=== PATIENT | female | born 1975 | race Caucasian/White ===

== ENCOUNTER 2019-01-05 11:24 | Emergency (ER) | payer SELFPAY ==
--- NOTE | 2019-01-05 12:04 | RAD REPORT ---
EXAM DESCRIPTION: RAD - Wrist Left 3 View - 01/05/2019 11:56 am CLINICAL HISTORY: Pain;Numbness/tingling Pain COMPARISON: No comparisons FINDINGS: No fracture or dislocation seen. No foreign body or other soft tissue abnormality. IMPRESSION: Negative examination.
--- NOTE | 2019-01-05 13:18 | ER ---
Nurse's Notes [facility] Name: Aleksandra Downs Age: 43 yrs Sex: Female : 1975 Arrival Date: 01/05/2019 Time: 11:28 Bed 12 Private MD: Diagnosis: Pain in left wrist Presentation: 01/05 11:29 Presenting complaint: Patient states: i hurt my L wrist last , i cant remember how it happened, it started swelling and bruising and the pain wont go away; pain is 9/10; reports tingling and numbness on L fingers;. Transition of care: patient was not received from another setting of care. Onset of symptoms was January 05, 2019. Risk Assessment: Do you want to hurt yourself or someone else? Patient reports no desire to harm self or others. Initial Sepsis Screen: Does the patient meet any 2 criteria? No. Patient's initial sepsis screen is negative. Does the patient have a suspected source of infection? No. Patient's initial sepsis screen is negative. Care prior to arrival: None. 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 5 in. (165.10 cm); Pain 9/10; 11:31 Body Mass Index 24.96 (68.04 kg, 165.10 cm) ED Course: 11:28 Patient arrived in ED. mr 11:31 Triage completed. hj 11:31 Arm band placed on right wrist. hj 11:36 Linda Olguin FNP-C is PHCP. snw 11:36 Noman Lance MD is Attending Physician. snw 11:52 X-ray completed. Portable x-ray completed in exam room. Patient tolerated procedure mh1 well. 12:47 Shirlene Lynn, RN is Primary Nurse. iw 13:16 Casey Paul MD is Referral Physician. snw Administered Medications: No medications were administered Outcome: 13:18 Discharge ordered by . snw 13:29 Patient left the ED. iw Signatures: Linda Olguin, JOSELINE-C SUPERVISOR [employer]ADING-Csnw Savanna Blanca Martha mh1 Shirlene Lynn RN RN Michael Flores RN RN Corrections: (The following items were deleted from the chart) 11:34 11:31 Pulse 78bpm; Resp 18bpm; Pulse Ox 100% RA; Temp 97.8F Oral; 68.04 kg; Height 5 hj ft. 5 in.; BMI: 24.9; Pain 9/10; hj
--- NOTE | 2019-01-05 13:18 | EDPHYS ---
Physician Documentation [facility] Name: Aleksandra Downs Age: 43 yrs Sex: Female : 1975 Arrival Date: 01/05/2019 Time: 11:28 Bed 12 Private MD: ED Physician Noman Lance HPI: 01/05 13:24 This 43 yrs old Female presents to ER via Ambulatory with complaints of Wrist snw Injury. 13:24 The patient or guardian reports decreased range of motion, pain, swelling. The snw complaints affect the left wrist diffusely. Context: The problem was sustained at an unknown location, resulted from a repetitive motion. Onset: The symptoms/episode began/occurred suddenly, 5 day(s) ago, and became persistent. Associated signs and symptoms: Pertinent positives: tingling distally. The patient has not experienced similar symptoms in the past. It is unknown whether or not the patient has recently seen a physician. 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 Historical: - Allergies: 11:31 No Known Allergies; - Home Meds: 11:31 None [Active]; - PMHx: 11:31 None; - PSHx: 11:31 Hernia repair; ROS: 13:23 Constitutional: Negative for fever, chills, and weight loss, Eyes: Negative for injury, snw pain, redness, and discharge, ENT: Negative for injury, pain, and discharge, Neck: Negative for injury, pain, and swelling, Cardiovascular: Negative for chest pain, palpitations, and edema, Respiratory: Negative for shortness of breath, cough, wheezing, and pleuritic chest pain, Abdomen/GI: Negative for abdominal pain, nausea, vomiting, diarrhea, and constipation, Back: Negative for injury and pain, : Negative for injury, bleeding, discharge, and swelling, Skin: Negative for injury, rash, and discoloration, Neuro: Negative for headache, weakness, numbness, tingling, and seizure. 13:23 MS/extremity: Positive for decreased range of motion, pain, swelling, tingling, of the lateral aspect of left hand and lateral aspect of left wrist. Exam: 13:22 Constitutional: This is a well developed, well nourished patient who is awake, alert, snw and in no acute distress. Head/Face: Normocephalic, atraumatic. Eyes: Pupils equal round and reactive to light, extra-ocular motions intact. Lids and lashes normal. Conjunctiva and sclera are non-icteric and not injected. Cornea within normal limits. Periorbital areas with no swelling, redness, or edema. ENT: Nares patent. No nasal discharge, no septal abnormalities noted. Tympanic membranes are normal and external auditory canals are clear. Oropharynx with no redness, swelling, or masses, exudates, or evidence of obstruction, uvula midline. Mucous membranes moist. Neck: Trachea midline, no thyromegaly or masses palpated, and no cervical lymphadenopathy. Supple, full range of motion without nuchal rigidity, or vertebral point tenderness. No Meningismus. Chest/axilla: Normal chest wall appearance and motion. Nontender with no deformity. No lesions are appreciated. Cardiovascular: Regular rate and rhythm with a normal S1 and S2. No gallops, murmurs, or rubs. Normal PMI, no JVD. No pulse deficits. Respiratory: Lungs have equal breath sounds bilaterally, clear to auscultation and percussion. No rales, rhonchi or wheezes noted. No increased work of breathing, no retractions or nasal flaring. Back: No spinal tenderness. No costovertebral tenderness. Full range of motion. Skin: Warm, dry with normal turgor. Normal color with no rashes, no lesions, and no evidence of cellulitis. 13:22 Musculoskeletal/extremity: Extremities: grossly normal except: noted in the lateral aspect of left wrist and lateral aspect of left hand: decreased ROM, swelling, tenderness, ROM: limited active range of motion due to pain, limited passive range of motion due to pain, Circulation is intact in all extremities. Tingling of extremity. Vital Signs: 11:31 BP 129 / 76; Pulse 78; Resp 18; Temp 97.8(O); Pulse Ox 100% on R/A; Weight 68.04 kg; hj Height 5 ft. 5 in. (165.10 cm); Pain 9/10; 11:31 Body Mass Index 24.96 (68.04 kg, 165.10 cm) MDM: 12:38 Patient medically screened. snw 13:22 Data reviewed: vital signs, nurses notes. Data interpreted: Pulse oximetry: on room air snw is 100 %. Interpretation: normal. Counseling: I had a detailed discussion with the patient and/or guardian regarding: the historical points, exam findings, and any diagnostic results supporting the discharge/admit diagnosis, radiology results, the need for outpatient follow up, to return to the emergency department if symptoms worsen or persist or if there are any questions or concerns that arise at home. Special discussion: Based on the history and exam findings, there is no indication for further emergent testing or inpatient evaluation. I discussed with the patient/guardian the need to see the hand specialist for further evaluation of the symptoms. I discussed with the patient/guardian the need to see the orthopedic surgeon for further evaluation of the symptoms. 01/05 11:35 Order name: Wrist Left (3 View) XRAY snw 01/05 12:05 Order name: RAD; Complete Time: 12:05 EDMS 01/05 12:47 Order name: Thumb Spica Splint: velcro thumb splint; Complete Time: 13:08 snw Administered Medications: No medications were administered Disposition: 01/06 07:31 Co-signature as Attending Physician, Noman Lance MD I agree with the assessment and maggie plan of care. Disposition: 01/05/19 13:18 Discharged to Home. Impression: Pain in left wrist. - Condition is Stable. - Discharge Instructions: Musculoskeletal Pain, Wrist Pain, Wrist Splint, Cryotherapy, [id number]-ha-[id number]. - Prescriptions for Tylenol- Codeine #3 300-30 mg Oral Tablet - take 2 tablets by ORAL route every 6 hours As needed; 16 tablet. - Medication Reconciliation Form, Thank You Letter, Antibiotic Education, Prescription Opioid Use, Work release form form. - Follow up: Emergency Department; When: As needed; Reason: Worsening of condition. Follow up: Private Physician; When: 2 - 3 days; Reason: Recheck today's complaints, Continuance of care, Re-evaluation by your physician. Follow up: Casey Paul MD; When: 2 - 3 days; Reason: Recheck today's complaints, Continuance of care. Signatures: Dispatcher [employer] Noman Bazzi MD MD cha Therrien, Shelly, FISHER EEL-C FISHER EEL-Csnw Shirlene Lynn RN RN iw Joaquin, Henry, RN RN Corrections: (The following items were deleted from the chart) 01/05 13:29 13:18 01/05/2019 13:18 Discharged to Home. Impression: Pain in left wrist. Condition is iw Stable. Forms are Medication Reconciliation Form, Thank You Letter, Antibiotic Education, Prescription Opioid Use. Follow up: Emergency Department; When: As needed; Reason: Worsening of condition. Follow up: Private Physician; When: 2 - 3 days; Reason: Recheck today's complaints, Continuance of care, Re-evaluation by your physician. Follow up: Casey Paul; When: 2 - 3 days; Reason: Recheck today's complaints, Continuance of care. snw
== END 2019-01-05 13:29 | disposition home or self-care (01) ==
LOC: ER 11:24
DX: M25.532 Pain in left wrist (principal)
CPT/HCPCS: 99281

== ENCOUNTER 2019-02-19 11:01 | Emergency (ER) | payer SELFPAY ==
--- NOTE | 2019-02-19 12:37 | RAD REPORT ---
EXAM DESCRIPTION: RAD - Foot Left 3 View - 02/19/2019 12:10 pm CLINICAL HISTORY: Left Foot pain FINDINGS: No fracture or dislocation is seen. Large calcaneal spur is present bones appear somewhat osteoporotic.
--- NOTE | 2019-02-19 13:02 | EDPHYS ---
Physician Documentation [facility] Name: Aleksandra Downs Age: 43 yrs Sex: Female : 1975 Arrival Date: 02/19/2019 Time: 11:04 Bed 14 Private MD: Unknown, Unknown ED Physician Ko Peterson HPI: 02/19 12:51 This 43 yrs old Female presents to ER via Ambulatory with complaints of Foot gs Pain. 12:51 The patient presents with pain. The complaints affect the left foot. Context: the gs patient can partially bear weight. Onset: The symptoms/episode began/occurred 5 day(s) ago. Associated signs and symptoms: Pertinent negatives: weakness. Severity of symptoms: At their worst the symptoms were moderate, in the emergency department the symptoms are unchanged. The patient has experienced similar episodes in the past, a few times. 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 - Social history:: Smoking status: Patient/guardian denies using tobacco. - Ebola Screening: : No symptoms or risks identified at this time. ROS: 12:51 All other systems are negative. gs Exam: 12:51 ENT: Nares patent. No nasal discharge, no septal abnormalities noted. Tympanic gs membranes are normal and external auditory canals are clear. Oropharynx with no redness, swelling, or masses, exudates, or evidence of obstruction, uvula midline. Mucous membranes moist. Cardiovascular: Regular rate and rhythm with a normal S1 and S2. No gallops, murmurs, or rubs. Normal PMI, no JVD. No pulse deficits. Respiratory: Lungs have equal breath sounds bilaterally, clear to auscultation and percussion. No rales, rhonchi or wheezes noted. No increased work of breathing, no retractions or nasal flaring. Abdomen/GI: Soft, non-tender, with normal bowel sounds. No distension or tympany. No guarding or rebound. No evidence of tenderness throughout. Back: No spinal tenderness. No costovertebral tenderness. Full range of motion. Skin: Warm, dry with normal turgor. Normal color with no rashes, no lesions, and no evidence of cellulitis. Neuro: Awake and alert, GCS 15, oriented to person, place, time, and situation. Cranial nerves II-XII grossly intact. Motor strength 5/5 in all extremities. Sensory grossly intact. Cerebellar exam normal. Normal gait. 12:51 Constitutional: The patient appears alert, awake. 12:51 Musculoskeletal/extremity: Extremities: noted in the left foot: There is no evidence of swelling, Pulses: are normal with no appreciated deficits, Sensation intact. Vital Signs: 11:10 BP 112 / 75; Pulse 84; Resp 16; Temp 97.5; Pulse Ox 100% on R/A; Weight 68.04 kg; hb Height 5 ft. 5 in. (165.10 cm); Pain 8/10; 12:00 BP 117 / 78; Pulse 81; Resp 16; Temp 98.3(O); Pulse Ox 100% on R/A; Pain 8/10; rb1 12:59 BP 111 / 85; Pulse 78; Resp 16; Temp 98.4(O); Pulse Ox 98% ; mh5 11:10 Body Mass Index 24.96 (68.04 kg, 165.10 cm) hb MDM: 11:46 Patient medically screened. gs 12:51 Differential diagnosis: fracture, sprain. Data reviewed: vital signs, nurses notes. gs Counseling: I had a detailed discussion with the patient and/or guardian regarding: radiology results, the need for outpatient follow up, a orthopedic surgeon. Response to treatment: the patient's symptoms have mildly improved after treatment. 02/19 11:48 Order name: Foot Left 3 View XRAY; Complete Time: 12:51 gs Administered Medications: No medications were administered Disposition: 02/19/19 13:01 Discharged to Home. Impression: Other sprain of left foot. - Condition is Stable. - Discharge Instructions: Foot Sprain. - Medication Reconciliation Form, Thank You Letter, Antibiotic Education, Prescription Opioid Use form. - Follow up: Roddy Estes MD; When: 2 - 3 days; Reason: Re-evaluation by your physician. Signatures: Dispatcher [employer] EDMS Zandra Glover RN RN [facility] Radha Scott RN RN Ko Peterson MD MD Corrections: (The following items were deleted from the chart) 13:26 13:01 02/19/2019 13:01 Discharged to Home. Impression: Other sprain of left foot. rb1 Condition is Stable. Forms are Medication Reconciliation Form, Thank You Letter, Antibiotic Education, Prescription Opioid Use. Follow up: Roddy Estes; When: 2 - 3 days; Reason: Re-evaluation by your physician. gs
--- NOTE | 2019-02-19 13:02 | ER ---
Nurse's Notes [facility] Name: Aleksandra Downs Age: 43 yrs Sex: Female : 1975 Arrival Date: 02/19/2019 Time: 11:04 Bed 14 Private MD: Unknown, Unknown Diagnosis: Other sprain of left foot Presentation: 02/19 11:08 Presenting complaint: Right ankle and foot pain x 1 week, denies injury. Transition of care: patient was not received from another setting of care. Onset of symptoms was February 12, 2019. Risk Assessment: Do you want to hurt yourself or someone else? Patient reports no desire to harm self or others. Initial Sepsis Screen: Does the patient meet any 2 criteria? No. Patient's initial sepsis screen is negative. Does the patient have a suspected source of infection? No. Patient's initial sepsis screen is negative. Care prior to arrival: None. 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 - Social history:: Smoking status: Patient/guardian denies using tobacco. - Ebola Screening: : No symptoms or risks identified at this time. Screenin:15 Abuse screen: Denies threats or abuse. Nutritional screening: No deficits noted. rb1 Tuberculosis screening: No symptoms or risk factors identified. Fall Risk None identified. Assessment: 11:15 General: Appears in no apparent distress. comfortable, Behavior is calm, cooperative, rb1 Denies fever. General: Denies. Pain: Complains of pain in left foot Pain does not radiate. Pain currently is 8 out of 10 on a pain scale. Neuro: Level of Consciousness is awake, alert, obeys commands, Oriented to person, place, time, situation. Cardiovascular: Capillary refill < 3 seconds is brisk in bilateral fingers. Respiratory: Airway is patent Respiratory effort is even, unlabored, Respiratory pattern is regular, symmetrical. GI: No signs and/or symptoms were reported involving the gastrointestinal system. : No signs and/or symptoms were reported regarding the genitourinary system. Derm: Skin is pink, warm \T\ dry. Musculoskeletal: Swelling present in left foot. 12:15 Reassessment: Patient appears in no apparent distress at this time. No changes from rb1 previously documented assessment. 13:00 Reassessment: Patient appears in no apparent distress at this time. Patient and/or rb1 family updated on plan of care and expected duration. Pain level reassessed. Patient is alert, oriented x 3, equal unlabored respirations, skin warm/dry/pink. Vital Signs: 11:10 BP 112 / 75; Pulse 84; Resp 16; Temp 97.5; Pulse Ox 100% on R/A; Weight 68.04 kg; hb Height 5 ft. 5 in. (165.10 cm); Pain 8/10; 12:00 BP 117 / 78; Pulse 81; Resp 16; Temp 98.3(O); Pulse Ox 100% on R/A; Pain 8/10; rb1 12:59 BP 111 / 85; Pulse 78; Resp 16; Temp 98.4(O); Pulse Ox 98% ; mh5 11:10 Body Mass Index 24.96 (68.04 kg, 165.10 cm) hb ED Course: 11:04 Patient arrived in ED. ag5 11:05 Unknown, Unknown is Private Physician. ag5 11:09 Triage completed. hb 11:10 Arm band placed on. hb 11:12 Ko Peterson MD is Attending Physician. gs 11:15 Patient has correct armband on for positive identification. Bed in low position. Call rb1 light in reach. Side rails up X 1. Pulse ox on. NIBP on. 11:21 Zandra Glover, KINGSLEY is Primary Nurse. rb1 12:10 X-ray completed. Portable x-ray completed in exam room. Patient tolerated procedure ls3 well. 12:11 Foot Left 3 View XRAY In Process Unspecified. EDMS 13:00 Roddy Estes MD is Referral Physician. 13:26 No provider procedures requiring assistance completed. Patient did not have IV access rb1 during this emergency room visit. Administered Medications: No medications were administered Outcome: 13:01 Discharge ordered by . gs 13:26 Patient left the ED. rb1 13:26 Discharged to home ambulatory, Pt. has her own walking boot with her from home rb1 13:26 Condition: stable 13:26 Discharge instructions given to patient, Instructed on discharge instructions, follow up and referral plans. Demonstrated understanding of instructions, follow-up care, Prescriptions given X none Signatures: Dispatcher [employer] Zandra Sumner RN RN rb1 Baxter, Heather, RN RN [place], [place] [id number] Ko Peterson MD MD gs Siler, Lynzie 3 Kimberly, laura 5
== END 2019-02-19 13:26 | disposition home or self-care (01) ==
LOC: ER 11:01
DX: S93.602A Unspecified sprain of left foot, initial encounter (principal); F31.9 Bipolar disorder, unspecified
CPT/HCPCS: 99283

== ENCOUNTER 2019-05-07 11:44 | Emergency (ER) | payer SELFPAY ==
[2019-05-07] MEDS ORDERED: LIDOCAINE 1% MPF 5 ML VIAL ONE (12:08)
[2019-05-07] MEDS ORDERED: TETANUS & DIPHTHERIA TOX,ADULT 0.5 ML VIAL ONE (12:46)
--- NOTE | 2019-05-07 12:51 | ER ---
Nurse's Notes [facility] Name: Aleksandra Downs Age: 43 yrs Sex: Female : 1975 Arrival Date: 05/07/2019 Time: 11:48 Bed 23 Private MD: Diagnosis: Cutaneous abscess of the Buttock Presentation: 05/07 11:56 Presenting complaint: Patient states: "I have an abcess on the L cheek of my butt since ca1 Saturday and it has been draining fluid". Transition of care: patient was not received from another setting of care. Onset of symptoms was May 07, 2019. Risk Assessment: Do you want to hurt yourself or someone else? Patient reports no desire to harm self or others. Initial Sepsis Screen: Does the patient meet any 2 criteria? No. Patient's initial sepsis screen is negative. Does the patient have a suspected source of infection? No. Patient's initial sepsis screen is negative. Care prior to arrival: None. 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 - Social history:: Smoking status: Patient/guardian denies using tobacco. - Ebola Screening: : Patient negative for fever greater than or equal to 101.5 degrees Fahrenheit, and additional compatible Ebola Virus Disease symptoms Patient denies exposure to infectious person Patient denies travel to an Ebola-affected area in the 21 days before illness onset No symptoms or risks identified at this time. Screenin:59 Abuse screen: Denies threats or abuse. Denies injuries from another. Nutritional ca1 screening: No deficits noted. Tuberculosis screening: No symptoms or risk factors identified. Fall Risk None identified. Assessment: 12:01 General: Appears in no apparent distress. comfortable, Behavior is calm, cooperative, ca1 appropriate for age. Pain: Complains of pain in left gluteus darian Pain currently is 10 out of 10 on a pain scale. Pain began Saturday. Neuro: Level of Consciousness is awake, alert, obeys commands, Oriented to person, place, time, situation, Appropriate for age. Cardiovascular: Heart tones S1 S2 present Capillary refill < 3 seconds Patient's skin is warm and dry. Respiratory: Airway is patent Respiratory effort is even, unlabored, Respiratory pattern is regular, symmetrical, Breath sounds are clear bilaterally. GI: Abdomen is round non-distended, Bowel sounds present X 4 quads. Abd is soft and non tender X 4 quads. : No deficits noted. No signs and/or symptoms were reported regarding the genitourinary system. EENT: No deficits noted. No signs and/or symptoms were reported regarding the EENT system. Derm: Skin is healthy with good turgor, Skin is pink, warm \\T\\ dry. Abscess located on left gluteus darian is quarter sized, has purulent drainage, is hot to touch, is red, is raised, was lanced by patient prior to arrival. Musculoskeletal: Circulation, motion, and sensation intact. Capillary refill < 3 seconds, Range of motion: intact in all extremities. 13:01 Reassessment: Patient appears in no apparent distress at this time. Patient is alert, ca1 oriented x 3, equal unlabored respirations, skin warm/dry/pink. kept a few more minutes to observe for untoward reactions to tetanus shot. Vital Signs: 11:59 BP 126 / 89; Pulse 73; Resp 15 S; Temp 98.7(O); Pulse Ox 98% on R/A; Weight 72.57 kg ca1 (R); Height 5 ft. 4 in. (162.56 cm) (R); Pain 10/10; 13:02 BP 117 / 75; Pulse 64; Resp 16 S; Pulse Ox 99% on R/A; ca1 11:59 Body Mass Index 27.46 (72.57 kg, 162.56 cm) ca1 ED Course: 11:48 Patient arrived in ED. mr 11:49 Keke Randall, KINGSLEY is Primary Nurse. ca1 11:49 Sriram Townsend PA is PHCP. [facility] 11:49 Noman Lance MD is Attending Physician. [facility] 11:57 Triage completed. ca1 11:59 Arm band placed on right wrist. ca1 11:59 Patient has correct armband on for positive identification. Placed in gown. Bed in low ca1 position. Call light in reach. Side rails up X 1. Pulse ox on. NIBP on. Warm blanket given. 11:59 Patient did not have IV access during this emergency room visit. ca1 12:53 Assist provider with I \\T\\ D: of an abscess on left gluteus darian Set up I\\T\\D tray. ca 1 Performed by Sriram DENNEY Wound packed. iodoform gauze, Dressing with 4X4s, tape Patient tolerated well. Administered Medications: 12:49 Drug: Tetanus-Diphtheria Toxoid Adult 0.5 ml {Slackman: [employer]. Exp: ca1 12/16/2020. Lot #: [id number]. } Route: IM; Site: left deltoid; 13:11 Follow up: Response: No adverse reaction ca1 12:55 Drug: Lidocaine (1 %) 5 mg {Note: By JUMANA Velazco.} Route: Infiltration; ca1 12:55 Drug: Lidocaine (1 %) 5 mg {Note: by JUMANA Velazco.} Route: Infiltration; ca1 Outcome: 12:50 Discharge ordered by . ghada 13:11 Discharged to home ambulatory, with significant other. ca1 13:11 Condition: stable 13:11 Discharge instructions given to patient, Instructed on discharge instructions, follow up and referral plans. no drinking with medication, no driving heavy equipment, medication usage, wound care, Demonstrated understanding of instructions, follow-up care, medications, wound care, Prescriptions given X 2. 13:12 Patient left the ED. ca1 Signatures: Sriram Townsend PA PA jmm RiveraSavanna Keke Randall, RN RN ca1 Corrections: (The following items were deleted from the chart) 12:04 11:59 LMP 04/24/2019 ca1 ca1 12:53 12:01 Pain: Complains of pain in left gluteus darian Pain currently is 10 out of 10 on ca1 a pain scale. Pain began Saturday ca1 12:54 12:53 Assist provider with I \\T\\ D: of an abscess on left ca1 ca1 13:02 13:01 Reassessment: Patient appears in no apparent distress at this time. Patient is ca1 alert, oriented x 3, equal unlabored respirations, skin warm/dry/pink. ca1
--- NOTE | 2019-05-07 12:51 | EDPHYS ---
Physician Documentation [facility] Name: Aleksandra Downs Age: 43 yrs Sex: Female : 1975 Arrival Date: 05/07/2019 Time: 11:48 Bed 23 Private MD: ED Physician Noman Lance HPI: 05/07 12:22 This 43 yrs old Female presents to ER via Ambulatory with complaints of jmm Abscess. 12:22 The patient presents with an abscess of the left gluteus darian. Onset: The jmm symptoms/episode began/occurred gradually, 3 day(s) ago. Possible cause(s): unknown. Associated signs and symptoms: Pertinent positives: drainage, erythema, swelling, Pertinent negatives: fever. This is a 43 year old female with a history of bipolar disorder that presents to the ED with complaints of left buttock swelling and drainage beginning 3 days ago. Denies fever or chills. 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 - Social history:: Smoking status: Patient/guardian denies using tobacco. - Ebola Screening: : Patient negative for fever greater than or equal to 101.5 degrees Fahrenheit, and additional compatible Ebola Virus Disease symptoms Patient denies exposure to infectious person Patient denies travel to an Ebola-affected area in the 21 days before illness onset No symptoms or risks identified at this time. ROS: 12:22 Constitutional: Negative for fever, chills, and weight loss, Cardiovascular: Negative jmm for chest pain, palpitations, and edema, Respiratory: Negative for shortness of breath, cough, wheezing, and pleuritic chest pain. 12:22 Skin: Positive for abscess. 12:22 All other systems are negative. Exam: 12:22 Constitutional: This is a well developed, well nourished patient who is awake, alert, jmm and in no acute distress. Head/Face: atraumatic. Eyes: EOMI, no conjunctival erythema appreciated ENT: Moist Mucus Membranes Neck: Trachea midline, Supple Chest/axilla: Normal chest wall appearance and motion. Cardiovascular: Regular rate and rhythm. No edema appreciated Respiratory: Normal respirations, no respiratory distress appreciated Abdomen/GI: Non distended, soft Back: Normal ROM 12:22 Skin: draining abscess noted to the left buttocks. TTP. 12:22 Neuro: Orientation: is normal, Mentation: is normal, Memory: is normal. 12:22 Psych: Behavior/mood is pleasant, cooperative. Vital Signs: 11:59 BP 126 / 89; Pulse 73; Resp 15 S; Temp 98.7(O); Pulse Ox 98% on R/A; Weight 72.57 kg ca1 (R); Height 5 ft. 4 in. (162.56 cm) (R); Pain 10/10; 13:02 BP 117 / 75; Pulse 64; Resp 16 S; Pulse Ox 99% on R/A; ca1 11:59 Body Mass Index 27.46 (72.57 kg, 162.56 cm) ca1 Procedures: 12:24 I \T\ D: Incision and drainage was performed for an abscess of the left left gluteus jmm darian Prepped with Betadine, Anesthetized with 10 ml's 1% Lidocaine. Incised with #11 blade. Drained moderate amount purulent fluid. Packed with iodoform gauze, Dressing: sterile 4x4 gauze, the patient tolerated the procedure well. MDM: 11:50 Patient medically screened. [facility] 12:37 Data reviewed: vital signs, nurses notes. Counseling: I had a detailed discussion with ghada the patient and/or guardian regarding: the historical points, exam findings, and any diagnostic results supporting the discharge/admit diagnosis, the need for outpatient follow up, to return to the emergency department if symptoms worsen or persist or if there are any questions or concerns that arise at home. 12:49 ED course: Patient given wound infection return precautions. Patient understood and ghada agrees with the plan of care. . 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 Exp: ca1 12/16/2020. Lot #: [id number]. } Route: IM; Site: left deltoid; 13:11 Follow up: Response: No adverse reaction ca1 12:55 Drug: Lidocaine (1 %) 5 mg {Note: By PA. Mora} Route: Infiltration; ca1 12:55 Drug: Lidocaine (1 %) 5 mg {Note: by PA. Mora} Route: Infiltration; ca1 Disposition: 05/08 06:40 Co-signature as Attending Physician, Noman Lnace MD I agree with the assessment and [facility] plan of care. Disposition: 05/07/19 12:50 Discharged to Home. Impression: Cutaneous abscess of the Buttock. - Condition is Stable. - Discharge Instructions: Skin Abscess. - Prescriptions for Tylenol- Codeine #3 300-30 mg Oral Tablet - take 2 tablet by ORAL route every 6 hours As needed; 6 tablet. Bactrim DS 800- 160 mg Oral Tablet - take 1 tablet by ORAL route every 12 hours for 10 days; 20 tablet. - Medication Reconciliation Form, Thank You Letter, Antibiotic Education, Prescription Opioid Use form. - Follow up: Private Physician; When: 2 - 3 days; Reason: Recheck today's complaints, Continuance of care, Re-evaluation by your physician. Signatures: Noman Lance MD MD cha Mickail, Joel, PA PA jmm Acob, Cheryl, RN RN ca1 Corrections: (The following items were deleted from the chart) 05/07 13:12 12:50 05/07/2019 12:50 Discharged to Home. Impression: Cutaneous abscess of the ca1 Buttock. Condition is Stable. Forms are Medication Reconciliation Form, Thank You Letter, Antibiotic Education, Prescription Opioid Use. Follow up: Private Physician; When: 2 - 3 days; Reason: Recheck today's complaints, Continuance of care, Re-evaluation by your physician. ghada
== END 2019-05-07 13:12 | disposition home or self-care (01) ==
LOC: ER 11:44
PROC: 0J990ZZ Drainage of Buttock Subcutaneous Tissue and Fascia, Open Approach (ICD-10-PCS; principal; 2019-05-07)
DX: L02.31 Cutaneous abscess of buttock (principal); F31.9 Bipolar disorder, unspecified; Z23 Encounter for immunization
CPT/HCPCS: 90471; 90714; 99284

== ENCOUNTER 2019-08-21 12:17 | Emergency (ER) | payer SELFPAY ==
--- OUTSIDE RECORDS SUMMARY | 2019-08-21 12:19 | XMS REPORT ---
:1975 [facility] Address [address] [place] [id number] Care Team Providers Name Role Phone Unavailable Unavailable Unavailable Problems This patient has no known problems. Allergies, Adverse Reactions, Alerts This patient has no known allergies or adverse reactions. Medications This patient has no known medications. Results Test Description Test Time Test Comments Text Results Atomic Results Result Comments SCR MAMM BILATERAL CAD 2019-07-13 11:42:21 - SCR MAMM BILATERAL CAD DIGITAL DIGITALBILATERAL DIGITAL SCREENING MAMMOGRAM WITH CAD: 07/10/2019CLINICAL: Asymptomatic. Current mammographic images were evaluated by either a [employer] M-Vu or a [employer] ImageChecker CAD (computer aided detection system). No prior exams were available for comparison. The tissue of both breasts is heterogeneously dense. This may lower the sensitivity of mammography. There are benign calcifications in the right breast. There also is a biopsy clip in the left breast. No suspicious mass, architectural distortion, malignant type calcification, or lymph node abnormality detected. IMPRESSION: BENIGNThere is no mammographic evidence of malignancy. Resume annual screening mammography in one year. Adan Wood/willy:07/13/2019 11:42:21 Costumed Character Entertainer: Caroline Avila MM, [facility] Mammographyletter sent: BIRADS 1-2 Normal Mammogram BI-RADS: 2 Benign
[2019-08-21] MEDS ORDERED: LIDOCAINE 1% 20 ML MDV ONE (15:19)
--- NOTE | 2019-08-21 16:01 | ER ---
Nurse's Notes [facility] Name: Aleksandra Downs Age: 43 yrs Sex: Female : 1975 Arrival Date: 08/21/2019 Time: 12:19 Bed 9 Private MD: Diagnosis: Cutaneous abscess of buttock Presentation: 08/21 12:35 Presenting complaint: Patient states: "I have a cyst or something on my left butt aj1 cheek. I had one before I came here and they cut it and packed it and it healed up" Denies fever. Transition of care: patient was not received from another setting of care. Onset of symptoms was 2019. Risk Assessment: Do you want to hurt yourself or someone else? Patient reports no desire to harm self or others. Initial Sepsis Screen: Does the patient meet any 2 criteria? No. Patient's initial sepsis screen is negative. Does the patient have a suspected source of infection? Yes: Skin breakdown/wound. Care prior to arrival: None. 12:35 Method Of Arrival: Ambulatory [facility] 12:35 Acuity: EILEEN 4 aj1 Triage Assessment: 12:37 General: Appears in no apparent distress. uncomfortable, Behavior is calm, cooperative, aj1 appropriate for age. Pain: Pain currently is 4 out of 10 on a pain scale. Neuro: Level of Consciousness is awake, alert, obeys commands. Cardiovascular: Patient's skin is warm and dry. Respiratory: Airway is patent Respiratory effort is even, unlabored, Respiratory pattern is regular, symmetrical. 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 - Social history:: Smoking status: Patient/guardian denies using tobacco. - Ebola Screening: : Patient denies travel to an Ebola-affected area in the 21 days before illness onset. Screenin:40 Abuse screen: Denies threats or abuse. Denies injuries from another. Nutritional hb screening: No deficits noted. Tuberculosis screening: No symptoms or risk factors identified. Fall Risk None identified. Assessment: 14:40 General: Appears in no apparent distress. Behavior is calm, cooperative. Pain: Pain hb currently is 4 out of 10 on a pain scale. Neuro: Level of Consciousness is awake, alert, obeys commands, Oriented to person, place, time, situation. Cardiovascular: Capillary refill < 3 seconds Patient's skin is warm and dry. Respiratory: Airway is patent Respiratory effort is even, unlabored, Respiratory pattern is regular, symmetrical. GI: No signs and/or symptoms were reported involving the gastrointestinal system. : No signs and/or symptoms were reported regarding the genitourinary system. EENT: No signs and/or symptoms were reported regarding the EENT system. Derm: Skin is pink, warm \\T\\ dry. Abscess located on buttocks is half dollar sized. Musculoskeletal: No signs and/or symptoms reported regarding the musculoskeletal system. 15:45 Reassessment: Patient appears in no apparent distress at this time. Patient and/or hb family updated on plan of care and expected duration. Pain level reassessed. Patient is alert, oriented x 3, equal unlabored respirations, skin warm/dry/pink. Vital Signs: 12:37 BP 125 / 91; Pulse 81; Resp 18; Temp 98.2; Pulse Ox 99% on R/A; Weight 72.57 kg (R); aj1 Height 5 ft. 5 in. (165.10 cm) (R); Pain 4/10; 12:37 Body Mass Index 26.63 (72.57 kg, 165.10 cm) aj1 ED Course: 12:19 Patient arrived in ED. mr 12:36 Triage completed. aj1 12:37 Arm band placed on Patient placed in waiting room, Patient notified of wait time. aj1 14:33 Radha Scott, RN is Primary Nurse. hb 14:40 Patient has correct armband on for positive identification. Call light in reach. hb 15:07 Sriram Townsend PA is PHCP. jm 15:07 Noman Lance MD is Attending Physician. [facility] 15:58 No provider procedures requiring assistance completed. Patient did not have IV access hb during this emergency room visit. Administered Medications: 15:33 Drug: Lidocaine (1 %) 20 ml {Note: by JUMANA Bhatia.} Volume: 20 ml; Route: Infiltration; hb Outcome: 15:45 Discharged to home ambulatory, with significant other. hb 15:45 Condition: stable 15:45 Discharge instructions given to patient, Instructed on discharge instructions, follow up and referral plans. medication usage, wound care, Demonstrated understanding of instructions, follow-up care, medications, wound care, Prescriptions given X 2. 16:00 Discharge ordered by . ghada 16:10 Patient left the ED. hb Signatures: Pascale Martell, RN RN aj1 Sriram Townsend PA PA jmm Rivera, Mary mr Radha Scott RN RN hb
--- NOTE | 2019-08-21 16:01 | EDPHYS ---
Physician Documentation [facility] Name: Aleksandra Downs Age: 43 yrs Sex: Female : 1975 Arrival Date: 08/21/2019 Time: 12:19 Bed 9 Private MD: ED Physician Noman Lance HPI: 08/21 15:13 This 43 yrs old Female presents to ER via Ambulatory with complaints of jmm Abscess. 15:13 The patient presents with an abscess of the buttocks. Onset: The symptoms/episode jmm began/occurred gradually, 4 day(s) ago. Possible cause(s): unknown. Associated signs and symptoms: Pertinent positives: drainage, swelling, Pertinent negatives: fever. Modifying factors: the symptoms are alleviated by nothing, the symptoms are aggravated by nothing. This is a 43 year old female with a history of bipolar that presents to the ED with complaints of left buttock pain beginning this past Saturday. Denies fever or chills. Abscess has been draining but patient continues to have pain. . 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 - Social history:: Smoking status: Patient/guardian denies using tobacco. - Ebola Screening: : Patient denies travel to an Ebola-affected area in the 21 days before illness onset. ROS: 15:13 Constitutional: Negative for fever, chills, and weight loss, Cardiovascular: Negative jmm for chest pain, palpitations, and edema, Respiratory: Negative for shortness of breath, cough, wheezing, and pleuritic chest pain. 15:13 Skin: Positive for abscess. 15:13 All other systems are negative. Exam: 15:13 Constitutional: This is a well developed, well nourished patient who is awake, alert, jmm and in no acute distress. Head/Face: atraumatic. Eyes: EOMI, no conjunctival erythema appreciated ENT: Moist Mucus Membranes Neck: Trachea midline, Supple Chest/axilla: Normal chest wall appearance and motion. Cardiovascular: Regular rate and rhythm. No edema appreciated Respiratory: Normal respirations, no respiratory distress appreciated Abdomen/GI: Non distended, soft Back: Normal ROM 15:13 Skin: abscess noted to the left buttock. Induration appreciated, TTP. 15:13 Neuro: Orientation: is normal, Mentation: is normal, Memory: is normal. 15:13 Psych: Behavior/mood is pleasant, cooperative. Vital Signs: 12:37 BP 125 / 91; Pulse 81; Resp 18; Temp 98.2; Pulse Ox 99% on R/A; Weight 72.57 kg (R); aj1 Height 5 ft. 5 in. (165.10 cm) (R); Pain 4/10; 12:37 Body Mass Index 26.63 (72.57 kg, 165.10 cm) [facility] Procedures: 15:58 I \T\ D: Incision and drainage was performed for an abscess of the buttocks Prepped with [facility] Betadine, Anesthetized with 5 ml's 1% Lidocaine. Incised with #11 blade. Drained small amount purulent fluid. Loculations removed. Abscess cavity explored. Packed with iodoform gauze, Dressing: sterile 4x4 gauze, the patient tolerated the procedure well. MDM: 15:13 Patient medically screened. [facility] 15:58 Data reviewed: vital signs, nurses notes. Counseling: I had a detailed discussion with [facility] the patient and/or guardian regarding: the historical points, exam findings, and any diagnostic results supporting the discharge/admit diagnosis, the need for outpatient follow up, to return to the emergency department if symptoms worsen or persist or if there are any questions or concerns that arise at home. ED course: Patient is alert and non toxic in appearance in the ED. Patient advised to follow up with pcp and otherwise given strict return precautions. Patient understood and agrees with the plan of care. . 08/21 15:13 Order name: Incision \T\ Drainage Setup; Complete Time: 15:[address] [facility] Administered Medications: 15:33 Drug: Lidocaine (1 %) 20 ml {Note: by JUMANA Bhatia.} Volume: 20 ml; Route: Infiltration; hb Disposition: 20:40 Co-signature as Attending Physician, Noman Lance MD I agree with the assessment and maggie plan of care. Disposition: 08/21/19 16:00 Discharged to Home. Impression: Cutaneous abscess of buttock. - Condition is Stable. - Discharge Instructions: Skin Abscess. - Prescriptions for Tylenol- Codeine #3 300-30 mg Oral Tablet - take 1 tablet by ORAL route every 6 hours As needed; 12 tablet. Bactrim DS 800- 160 mg Oral Tablet - take 1 tablet by ORAL route every 12 hours for 10 days; 20 tablet. - Medication Reconciliation Form, Thank You Letter, Antibiotic Education, Prescription Opioid Use form. - Follow up: Private Physician; When: 2 - 3 days; Reason: Recheck today's complaints, Continuance of care, Re-evaluation by your physician. Signatures: Pascale Martell RN RN aj1 Noman Lance MD MD cha Mickail, Joel, PA PA Radha Nunes RN RN hb Corrections: (The following items were deleted from the chart) 16:10 16:00 08/21/2019 16:00 Discharged to Home. Impression: Cutaneous abscess of buttock. hb Condition is Stable. Forms are Medication Reconciliation Form, Thank You Letter, Antibiotic Education, Prescription Opioid Use. Follow up: Private Physician; When: 2 - 3 days; Reason: Recheck today's complaints, Continuance of care, Re-evaluation by your physician. ghada
[2019-08-21 16:58] VITALS: BP 125/91; TEMP 98.2; O2SAT 99
== END 2019-08-21 16:10 | disposition home or self-care (01) ==
LOC: ER 12:17
PROC: 0J990ZZ Drainage of Buttock Subcutaneous Tissue and Fascia, Open Approach (ICD-10-PCS; principal; 2019-08-21)
DX: L02.31 Cutaneous abscess of buttock (principal)
CPT/HCPCS: 99283